=== PATIENT | female | born 1955 | race Caucasian/White ===

== ENCOUNTER 2018-07-22 14:22 | Observation (INO) | payer BC ==
[~2018-07-22 14:22] MED LIST: ISOVUE-370 76%-LOCM 1 ML ONE
[2018-07-22 15:28] LABS: #Eosinphils 0.1 thou/uL (0.0-0.7); #Lymphocytes 1.4 thou/uL (1.20-3.40); #Monocytes 0.6 thou/uL (0.11-0.59); #Neutrophils 6.4 thou/uL (1.40-6.50); %Basophils 0.3 % (0.0-1.0); %Lymphocytes 16.1 % (21.0-51.0); %Monocytes 7.5 % (0.0-10.0); %Neutrophils 75.1 % (42.0-75.0); Hemoglobin 13.1 g/dL (12.0-16.0); Mean Corpuscular HGB CONC 34.3 g/dL (32.0-36.0); Mean Corpuscular Hemoglobin 31.5 pg (27.0-31.0); Mean Corpuscular Volume 91.8 fL (78.0-98.0); Platelet Count 234 thou/uL (130-400); RBC Distribution Width 11.3 % (11.5-14.5); Red Blood Cell (RBC) Count 4.17 mill/uL (4.20-5.40); White Blood Cell (WBC) Count 8.5 thou/uL (4.8-10.8)
[2018-07-22 15:48] LABS: ALT (SGPT) 28 U/L (8-55); AST (SGOT) 23 U/L (5-34); Albumin 3.9 g/dL (3.4-4.8); Alkaline Phosphatase 106 U/L (40-150); Anion Gap 10 mmol/L (10-20); BUN (Urea Nitrogen) 5 mg/dL (9.8-20.1); Bilirubin, Total 0.5 mg/dL (0.2-1.2); Calc. Creatinine Clearance 0 mL/min (70-130); Calcium 9.4 mg/dL (7.8-10.44); Carbon Dioxide 26 mmol/L (23-31); Chloride 100 mmol/L (98-107); Estimated GFR-MDRD Greater than 90; Globulin 2.8 g/dL (2.4-3.5); Glucose 97 mg/dL (80-115); Lipase 738 U/L (8-78); Potassium 3.4 mmol/L (3.5-5.1); Protein, Total 6.7 g/dL (6.0-8.3); Sodium 133 mmol/L (136-145)
--- NOTE | 2018-07-22 16:21 | RAD ---
AP VIEW CHEST 07/22/18 HISTORY: 63-year-old with history of fever. AP view chest is obtained on 07/22/18. The lungs are well aerated. No evidence of active intrathoracic disease seen. No evidence of effusion s, pneumonia or pneumothorax seen. IMPRESSION: Unremarkable AP view chest. POS: [facility]
--- NOTE | 2018-07-22 16:39 | CT ---
ABDOMEN AND PELVIC CT SCAN WITH IV CONTRAST: 07/22/18 HISTORY: Status post ERCP, fever. FINDINGS: Lung bases are clear. Minimal air within the biliary tree. Minimally distended gallbladder containing numerous gallstones without overt gallbladder wall thickening or pericholecystic fluid. Mild dilated common bile duct up to 0.8 cm with questionable small filling defect in the distal common duct, kwame dence for small distal common duct stone. Pancreas appears unremarkable. Spleen and adrenal glands ar e unremarkable. No renal calculus or acute obstruction. Colonic diverticulosis without acute diver ticulitis including the right colon. No CT evidence for acute appendicitis. Minimal free fluid in the pelvis. Probable small 1.2 cm right ovarian cyst. No abscess or abnormal fluid collection IMPRESSION: Cholelithiasis with minimal ductal dilatation and minimal air within the biliary tree with an intradu ctal calculus within the distal common bile duct. colonic diverticulosis without diverticulitis. No r enal calculus or acute obstruction. No CT evidence for acute appendicitis. POS: [facility]
[2018-07-22] MEDS ORDERED: Ondansetron PF 4 MG/2 ML Vial IVP PRN (17:47)
[2018-07-22] MEDS ORDERED: Sodium Chloride 0.9% 1,000 ML IV SCH (17:47)
[2018-07-22 17:54] VITALS: BMI 17.6
[2018-07-22] MEDS ORDERED: Senokot S 8.6-50 MG TAB PO PRN (18:11)
[2018-07-22] MEDS ORDERED: Morphine 4 MG/ML VIAL SLOW IVP PRN ×2 (18:17)
[2018-07-22] MEDS: Sodium Chloride 0.9% 1,000 ML IV SCH (18:19)
[2018-07-22] MEDS: Famotidine/PF 20 mg/2ml Vial SLOW IVP SCH (20:18)
--- NOTE | 2018-07-22 21:06 | HP ---
PRIMARY CARE PHYSICIAN: Dr. Nowak. CHIEF COMPLAINT: Fever. HISTORY OF PRESENT ILLNESS: Ms. Lee is a 63-year-old female, who underwent an ERCP yesterday as an outpatient for a gallstone in her common bile duct. Reports that she felt okay yesterday, but today she spiked 101.9 fever with some chills with mild cough, which prompted her visit to the emergency room today. The patient is a smoker. Past medical history, mild COPD, uses an inhaler, Spiriva daily. The patient underwent a CT scan while in the emergency room, it shows cholelithiasis with minimal ductal dilatation and minimal air within the biliary tree with intraductal calculus within the distal common bile duct. Colonic diverticulosis without any evidence of diverticulitis. No renal calculus or acute obstruction. No CT evidence for acute appendicitis. Liver enzymes are unremarkable. Lipase, however, was increased to 738. The patient was subsequently admitted to the hospital for post ERCP pancreatitis. Dr. Street with Gastroenterology was contacted and stated he would follow the patient. The patient will remain n.p.o., will be given IV fluids and pain medications. REVIEW OF SYSTEMS: CONSTITUTIONAL: Reports chills. Reports fever. Reports malaise. EYES: Denies any eye pain or eye changes. ENT: Denies rhinorrhea or sore throat. CARDIOVASCULAR: Denies chest pain or palpitations. RESPIRATORY: Reports mild cough. Denies shortness of breath. GI: Reports some mild epigastric discomfort. Denies any nausea, vomiting, diarrhea, or constipation. : Denies any dysuria or hematuria. MUSCULOSKELETAL: Denies any myalgias, falls, or injury. SKIN: Denies any rash. Does report some discoloration to her left lower leg, which is improving. It is nontender to palpation. No erythema or warmth is noted. Reports this has been chronic. Has been worked up for a DVT in the recent past, which is when they found the gallstone in her bile duct. NEUROLOGIC: Denies headache, mental status changes, or any sensory changes. Note all systems reviewed and are negative unless mentioned in the HPI. PHYSICAL EXAMINATION: VITAL SIGNS: Temperature is 98.3, pulse is 93, respirations 18, PO2 saturations 96%, blood pressure 138/87. CONSTITUTIONAL: The patient is currently afebrile, appears pain free, is alert and oriented to person, place, and time, is nontoxic appearing. HEENT: Head is atraumatic and normocephalic. Eyes, pupils are equally round and reactive to light. Extraocular muscles are intact. ENT, denies any rhinorrhea or sore throat. NECK: Normal range of motion. Trachea is midline. RESPIRATORY/CHEST: Breath sounds are clear. No findings of respiratory distress. CARDIOVASCULAR: Heart rate, regular rate and rhythm. Heart sounds are normal. ABDOMEN: Mild epigastric tenderness. Bowel sounds are heard. No distention. No peritoneal signs. BACK: Normal inspection. Normal range of motion. No tenderness. EXTREMITIES: Upper extremities, normal range of motion. Motor strength is normal. Radial pulses are equal bilaterally. Lower extremities, normal range of motion. Motor strength is normal. Sensation intact. Pedal pulses are equal bilaterally. There is no edema noted. NEURO: The patient is alert and oriented to person, place, and time. Speech is normal. No focal motor or sensory deficits are noted. SKIN: Warm, dry in color. There is a discoloration noted to the left lateral lower leg that is nontender to palpation. There is no warmth, erythema, or induration. The patient reports this is chronic. PSYCH: Normal affect. PAST MEDICAL HISTORY: Includes coronary artery disease. PAST SURGICAL HISTORY: Tubal ligation. PSYCH HISTORY: None. SOCIAL HISTORY: Drinks socially rarely. Denies drug use. Currently uses tobacco. The patient reports she is trying to quit. ALLERGIES: DRUG ALLERGIES ARE NONE. CURRENT MEDICATIONS: Spiriva 2.5 mcg daily. PERTINENT LABORATORY DATA: Sodium is 133, potassium is 3.4, chloride is 100, carbon dioxide is 26, gap is 10, BUN is 5, creatinine is 0.59, estimated GFR is 90, glucose is 97, lactic acid is 0.9, calcium is 9.4. Liver enzymes are unremarkable. Lipase is 738. White blood cell count is 8.5, red blood cell count is 4.17, hemoglobin 13.1, hematocrit 38.3, platelet count 234. ASSESSMENT AND PLAN: 1. Post endoscopic retrograde cholangiopancreatography pancreatitis. We will start IV fluids. Order pain medication, IV Tylenol as needed for a fever greater than 101. We have asked GI to consult. 2. Deep venous thrombosis and gastrointestinal prophylaxis started. The patient will remain n.p.o. 3. Hospital course will be dependent on clinical findings. Job ID: [id number]
--- NOTE | 2018-07-22 22:37 | CON ---
DATE OF CONSULTATION: 07/22/2018 REASON FOR CONSULTATION: Pancreatitis. HISTORY OF PRESENT ILLNESS: Arleen Lee is a very pleasant 63-year-old woman, seen by my GI colleague, Dr. Chico Norton. He recently evaluated her in clinic for incidental CT finding of choledocholithiasis. This was asymptomatic. He did confirm this with MRCP a couple of weeks ago, and she was set up and underwent ERCP with biliary sphincterotomy and balloon extraction of 2 dark pigmented stones yesterday. She reports that she felt okay after the procedure. She did remain n.p.o. for the rest of the day. This morning after breakfast, she started feeling some burning sensation in the epigastrium. This escalated in intensity. There was no nausea or vomiting with this, but then she spiked a fever up to 101 degrees. This prompted her presentation this afternoon. She was found to have elevations in amylase and lipase, though normal LFTs. She had a CT of the abdomen and pelvis and this demonstrates cholelithiasis within the gallbladder, some minimal biliary dilation to 8 mm and a questionable small filling defect in the distal common duct. There is no evidence of any abscess or abnormal fluid collection. No free air. No evidence of other procedural complication. The pancreas appears normal. The patient is currently feeling okay. She has been put on n.p.o. status and is receiving IV fluids. She says discomfort is minimal right now and she is currently afebrile. REVIEW OF SYSTEMS: Full review of systems including constitutional, head, eyes, ears, nose, throat, GI, , cardiovascular, respiratory, musculoskeletal, neurologic systems is negative except as noted in the HPI. PAST MEDICAL HISTORY: Coronary artery disease, tubal ligation, tobacco abuse, choledocholithiasis status post ERCP yesterday with Dr. Norton, cholelithiasis. ALLERGIES: NO KNOWN DRUG ALLERGIES. OUTPATIENT MEDICATIONS: Spiriva inhaler. SOCIAL HISTORY: The patient does smoke cigarettes. Alcohol use is rare. No drug use. FAMILY HISTORY: Noncontributory. PHYSICAL EXAMINATION: VITAL SIGNS: Temperature 98.3, pulse 93, blood pressure 138/87, 96% oxygen saturation on room air. GENERAL: A 63-year-old woman, lying in bed comfortably, in no distress. SKIN: No jaundice, no rashes that are palpable. HEENT: Eyes, no scleral icterus. Extraocular movements are intact. ENT, mucous membranes are moist. No oral lesions. LYMPH: No submandibular or supraclavicular lymphadenopathy. Thyroid is nontender to palpation. MENTAL: Alert and fully oriented, pleasant, conversational. HEART: Regular rate and rhythm. LUNGS: Clear to auscultation bilaterally. ABDOMEN: Bowel sounds are present though hypoactive. There is some tenderness to palpation in the epigastrium, but no guarding or rebound tenderness. EXTREMITIES: No peripheral edema. VESSELS: Radial pulses are 2+ bilaterally. NEURO: Cranial nerves 2 through 12 intact bilaterally. No focal deficits. LABORATORY STUDIES: WBC only 8.5, hemoglobin 13.1, platelets 234. Sodium 133, potassium 3.4, BUN 5, creatinine 0.59. Lactic acid only 0.9. LFTs all normal with total bilirubin 0.5, alkaline phosphatase 106, AST 23, ALT 28, amylase is elevated to 444, lipase elevated to 738. IMAGING STUDIES: CT abdomen and pelvis is detailed in the HPI. Chest x-ray shows no acute process. ASSESSMENT AND PLAN: Post endoscopic retrograde cholangiopancreatography pancreatitis, mild. The patient's presentation is consistent with post endoscopic retrograde cholangiopancreatography pancreatitis. I discussed with the patient that usually post endoscopic retrograde cholangiopancreatography pancreatitis cases remain mild with proper supportive care. All other laboratory parameters remain favorable. Note that the LFTs are normal, and I do not think that the CT findings actually signify a retained stone in the common bile duct. If more stones are falling out of the gallbladder into the common bile duct, she did have a good sphincterotomy performed just yesterday, and again LFTs are normal. Recommend continued supportive care with IV fluids and n.p.o. status for now. In the morning, if she has remained afebrile and abdominal discomfort improved, could try advancing her to clear liquid diet. Anticipate she will recover rapidly. Thank you for the consultation. Please call anytime with questions or concerns. Job ID: [id number]
[2018-07-22] MEDS: Acetaminophen 650 MG in Premix Bag 1 BAG IVPB PRN (23:18)
[2018-07-23] MEDS: Sodium Chloride 0.9% 1,000 ML IV SCH ×3 (02:03→17:11)
[2018-07-23 07:15] LABS: #Eosinphils 0.4 thou/uL (0.0-0.7); #Lymphocytes 1.3 thou/uL (1.20-3.40); #Monocytes 0.6 thou/uL (0.11-0.59); #Neutrophils 4.7 thou/uL (1.40-6.50); %Basophils 0.6 % (0.0-1.0); %Eosinophils 5.2 % (0.0-10.0); %Lymphocytes 18.3 % (21.0-51.0); %Neutrophils 66.9 % (42.0-75.0); Hemoglobin 12.2 g/dL (12.0-16.0); Mean Corpuscular HGB CONC 33.1 g/dL (32.0-36.0); Mean Corpuscular Hemoglobin 30.5 pg (27.0-31.0); Mean Corpuscular Volume 92.1 fL (78.0-98.0); Mean Platelet Volume 8.1 fL (7.4-10.4); Platelet Count 238 thou/uL (130-400); RBC Distribution Width 11.3 % (11.5-14.5); Red Blood Cell (RBC) Count 3.99 mill/uL (4.20-5.40)
[2018-07-23 07:30] LABS: ALT (SGPT) 32 U/L (8-55); AST (SGOT) 20 U/L (5-34); Albumin 3.4 g/dL (3.4-4.8); Alkaline Phosphatase 114 U/L (40-150); Anion Gap 11 mmol/L (10-20); BUN (Urea Nitrogen) 4 mg/dL (9.8-20.1); Bilirubin, Total 0.5 mg/dL (0.2-1.2); Calc. Creatinine Clearance 81 mL/min (70-130); Calcium 8.9 mg/dL (7.8-10.44); Carbon Dioxide 24 mmol/L (23-31); Chloride 105 mmol/L (98-107); Estimated GFR-MDRD Greater than 90; Globulin 2.6 g/dL (2.4-3.5); Glucose 83 mg/dL (80-115); Lipase 71 U/L (8-78); Potassium 3.2 mmol/L (3.5-5.1); Sodium 137 mmol/L (136-145)
[2018-07-23] MEDS: Famotidine/PF 20 mg/2ml Vial SLOW IVP SCH (08:52)
[2018-07-23] MEDS ORDERED: Enoxaparin Sodium 40 MG/0.4 ML SYRINGE SC SCH (09:00)
[2018-07-23] MEDS: Acetaminophen 650 MG in Premix Bag 1 BAG IVPB PRN (10:26)
--- NOTE | 2018-07-23 12:02 | PRG ---
DATE OF SERVICE: 07/23/2018 SUBJECTIVE: Ms. Lee is feeling a lot better today. She has some mild heartburn type discomfort, but no abdominal pain. No nausea or vomiting. She is about to start trying clear liquids. She has been hemodynamically stable overnight. Amylase and lipase normalized. OBJECTIVE: VITAL SIGNS: Temperature 98.7, pulse 89, blood pressure 121/77, and 94% oxygen saturation on room air. GENERAL: No acute distress. HEART: Regular rate and rhythm. LUNGS: Clear to auscultation bilaterally. ABDOMEN: Soft and nontender to palpation. EXTREMITIES: No peripheral edema. LABORATORY STUDIES: WBC 7.0, hemoglobin 12.2, and platelets 238. Sodium 137, potassium 3.2, BUN 4, creatinine 0.53, amylase normalized to 84, and lipase normalized to 71. LFTs all remain normal with total bilirubin 0.5, alkaline phosphatase 114, AST 20, and ALT 32. ASSESSMENT AND PLAN: Post endoscopic retrograde cholangiopancreatography pancreatitis, clinically improving. Ms. Lee is doing well with rapid improvement as expected. Agree with trying clear liquid diet for lunch today. I think if this goes well, then her diet could be rapidly advanced as tolerated. If she continues to do well this evening, she could even potentially be discharged home from the hospital. She can follow up in the outpatient setting with Dr. Norton as already planned. Job ID: [id number]
[2018-07-23 15:10] VITALS: BP 112/75; TEMP 97.9
--- NOTE | 2018-07-23 21:23 | DIS ---
DATE OF ADMISSION: 07/22/2018 DATE OF DISCHARGE: 07/23/2018 ALLERGIES: NO KNOWN DRUG ALLERGIES. CHIEF COMPLAINT: Fever status post ERCP. FINAL DIAGNOSES: 1. Post ERCP pancreatitis, resolved. 2. Status post endoscopic retrograde cholangiopancreatography with biliary sphincterectomy and balloon extraction of two dark pigmented stones on 2018. 3. Cholelithiasis. 4. Tobacco abuse. 5. Chronic obstructive pulmonary disease. PROCEDURES PERFORMED: None. LABORATORY RESULTS: White blood cell count 7, hemoglobin 12.2, hematocrit 36.8 , MCV 92.1, MCH 30.5, and platelet count 238. Chemistry; sodium 137, potassium 3.4, chloride 105, carbon dioxide 24, anion gap 11, BUN 4, creatinine 0.53, and GFR greater than 90. AST 20, ALT 32, and alkaline phosphatase 114. Serum total protein 6, albumin 3.4, globulin 2.6, albumin globulin ratio 1.3. Amylase 84, down from 444 on arrival and lipase 71 down from 738 on arrival. IMAGING RESULTS: Abdomen and pelvis CT showed cholelithiasis with minimal ductal dilatation and minimal air within the biliary tree with an intraductal calculus within the distal common bile duct, colonic diverticulosis without diverticulitis. No renal calculus or acute obstruction. No CT evidence for acute appendicitis. Chest x-ray showed unremarkable AP view of the chest. CONSULTATION: Dr. Street of Gastroenterology. HOSPITAL COURSE: The patient is a pleasant 63-year-old female with past medical history significant for recent ERCP with biliary sphincterectomy and balloon extraction of two dark pigmented stones 2 days ago. She is followed by Dr. Chico Norton of GI. He had recently evaluated her in clinic for incidental CT findings of choledocholithiasis, which was asymptomatic. He confirmed this with MRCP several weeks ago, and underwent ERCP 2 days ago as above. The patient initially felt fine after the procedure, she slept well, and she remained n.p.o. for the rest of the day. The following morning, she got up to breakfast and she began feeling some GI upset that she described as burning, which did continue to get worse. She denied any nausea or vomiting, but did run a fever of 101 degrees. She presented to the ER for further workup and treatment. She was found to have elevations in both her amylase and lipase. Lipase was elevated at 738. Amylase was elevated at 444. She was admitted for IV fluid resuscitation and treatment for postprocedure mild pancreatitis. The patient's enzymes completely normalized overnight. She is resting comfortably. She has a mild headache this morning, but otherwise no complaints. She feels well. She has ambulated without issue. She was started on a clear liquid diet this morning, tolerated it well, and we advanced the diet throughout the day. She is now on a full diet without any complaints. She has no nausea or vomiting. She has no further pain. PHYSICAL EXAMINATION: VITAL SIGNS: Blood pressure 112/75, temperature 97.9, pulse 94, respirations 16 , and O2 saturation 96% on room air. GENERAL: This is a thin female, resting comfortably in bed, in no acute distress. HEENT: Atraumatic and normocephalic. Eye movements intact. NECK: Supple. No lymphadenopathy. No JVD. Trachea is midline. RESPIRATORY: Regular respiratory rate and pattern, no rhonchi or wheezes, although overall she has poor air movement and poor vesicular breath sounds secondary to COPD. CARDIOVASCULAR: S1, S2. Regular rate and rhythm. No appreciable murmurs, rubs , or gallops. GI: Abdomen is soft, nontender. Positive bowel sounds throughout. PERIPHERAL VASCULAR: No lower extremity edema. +2 DP pulses bilaterally. MUSCULOSKELETAL: No joint effusion or swelling. NEUROLOGIC: She is awake and alert. Cranial nerves 2 through 12 are grossly intact. No focal deficits. SKIN: Normal and dry. No evidence of rash or abrasion. CONDITION AT DISCHARGE: Stable. DISCHARGE MEDICATIONS: 1. Aspirin 81 mg daily. 2. Spiriva inhaler as directed. DISCHARGE DISPOSITION: Home. PLAN: The patient will continue to monitor her symptoms, although the mild pancreatitis has completely resolved. She will follow up with her GI doctor, Dr. Chico Norton, as well as her primary care physician. She will continue a somewhat bland low-fat diet until she sees her GI doctor. I have counseled her on smoking cessation. The plan is to discharge the patient home today, which has been okayed with Dr. Street and she has advanced her diet without issue. Case discussed with Dr. Yi who agrees with plan. Job ID: [id number] [facility]
== END 2018-07-23 18:00 | disposition home or self-care (01) ==
LOC: ERS 14:22 → INTOOBSV 16:30 → SURG B 16:30
PROVIDERS: ADMIT Internal Medicine; ATTEND Internal Medicine
DX: K91.89 Other postprocedural complications and disorders of digestive system (principal); K85.90 Acute pancreatitis without necrosis or infection, unspecified; K80.70 Calculus of gallbladder and bile duct without cholecystitis without obstruction; J44.9 Chronic obstructive pulmonary disease, unspecified; K57.30 Diverticulosis of large intestine without perforation or abscess without bleeding; K83.8 Other specified diseases of biliary tract; I25.10 Atherosclerotic heart disease of native coronary artery without angina pectoris; F17.210 Nicotine dependence, cigarettes, uncomplicated; Z98.51 Tubal ligation status; Z79.82 Long term (current) use of aspirin; Z79.899 Other long term (current) drug therapy
CPT/HCPCS: 36415; 71045; 74177; 80053; 82150; 83605; 83690; 85025; 87804; 96360; 96361; 96372; 96374; 96375; 96376; G0378; J0131; J1650; Q9966; S0028